=== PATIENT | female | born 1965 | race American Indian/Alaskan Native ===

== ENCOUNTER 2018-10-17 09:16 | Outpatient (CLI) | payer SELFPAY | END 2018-10-17 09:17 | disposition home or self-care (01) | LOC: C.LAB 09:16 | DX: R74.8 Abnormal levels of other serum enzymes (principal); E11.65 Type 2 diabetes mellitus with hyperglycemia ==

== ENCOUNTER 2018-12-20 11:40 | Outpatient (CLI) | payer OTHER | END 2018-12-20 11:41 | disposition home or self-care (01) | LOC: C.MAMMO 11:40 | DX: R92.2 Inconclusive mammogram (principal) ==